=== PATIENT | female | born 1990 | race Caucasian/White ===

== ENCOUNTER 2019-06-06 16:30 | Outpatient (CLI) | payer BC ==
[~2019-06-06] VITALS: Ht 154.9 cm; Wt 98.2 kg
--- NOTE | 2019-06-06 16:40 | NUR ---
Patient ambulates with spouse to LR3, changed into gown and FHR/TOCO monitors placed and explained. Patient states she has been torsten since 1320 today and have become more regular and having some bloody discharge. Denies any leaking of fluid/vaginal bleeding/decreased movement. Plan of care discussed. SVE-/-3 Will continue to monitor
[2019-06-06] MEDS ORDERED: LEXAPRO 10MG10 MG PO (16:57)
[2019-06-06] MEDS ORDERED: PRENATAL TABLET PO (16:58)
[2019-06-06 17:30] VITALS: BP 132/76; PULSE 75; TEMP 98.4
[2019-06-06 18:00] VITALS: BP 136/84; PULSE 68
== END 2019-06-06 18:07 | disposition home or self-care (01) ==
LOC: LDRO 16:30 → LDR 17:06 → LDRO 18:07
DX: O62.9 Abnormality of forces of labor, unspecified (principal); O26.853 Spotting complicating pregnancy, third trimester; Z3A.40 40 weeks gestation of pregnancy
CPT/HCPCS: OP

== ENCOUNTER 2019-06-10 06:18 | Inpatient (IN) | payer BC ==
--- NOTE | 2019-06-09 19:23 | NUR ---
To C/S room via bed.
[2019-06-10] VITALS (63 sets, daily range): BP systolic 104–156; BP diastolic 57–91; PULSE 62–107; TEMP 98.1–98.8
[~2019-06-10] VITALS: Ht 157.5 cm; Wt 98.2 kg
[~2019-06-10 06:18] MED LIST: LEXAPRO 10MG10 MG PO; PRENATAL TABLET PO
--- NOTE | 2019-06-10 07:15 | NUR ---
Patient ambulatory to unit accompanied by spouse for scheduled pitocin induction of labor. Patient oriented to room and call light. Clean gown on and patient resting in bed. FHR and contraction monitors placed and explained. Patient denies any leaking of fluid or vaginal bleeding and states baby has been active. Consents signed. Assessment completed.
--- NOTE | 2019-06-10 08:00 | NUR ---
0750: IV started in left hand, labs collected from IV site and LR infusing without difficulty. 0755: SVE 2/50/-3. 0800: Pitocin started at 2mu/min. Patient resting in bed, sitting upright. Call light in reach and at bedside.
[2019-06-10 08:26] LABS: BASO # 0.1 (0.0-0.2); BASO % 0.5 % (0.0-2.0); EOS # 0.2 (0.0-0.7); EOS % 1.5 % (0-4.0); GRAN # 8.4 (1.4-6.5); GRAN % 76.7 % (42.2-75.2); HEMOGLOBIN 12.8 g/dl (12.5-16.0); LYMPH # 1.7 (1.2-3.4); LYMPH % 15.6 % (20.0-51.0); MEAN CELL VOLUME 85 fl (80.0-100.0); MEAN CORPUSCULAR HEMOGLOBIN 29 pg (27.0-31.0); MEAN CORPUSCULAR HGB CONC 34 g/dl (33.0-37.0); MEAN PLATELET VOLUME 11.8 fl (7.4-10.4); MONO # 0.6 (0.1-0.6); MONO % 5.4 % (1.7-9.3); PLATELET COUNT 203 K/mm3 (130-400); RED BLOOD COUNT 4.47 M/mm3 (4.10-5.30); REDCELL DISTRIBUTION WIDTH-CV 13.9 % (11.5-14.5)
--- NOTE | 2019-06-10 08:30 | NUR ---
0830: Dr. Adorno at nurses station and reviews FHR and contraction pattern since admit. To patient room. Plan of care discussed with patient and . SVE by Dr. Adorno with AROM attempt. No leaking of fluid noted. Patient state she feels like she needs to void. Patient off monitors and up to bathroom then back to be. 0855: Dr. Adorno attempt at AROM again but no leaking noted. Patient repositioned and sitting up in bed. Educated to call out if leaking fluid. SVE per Dr. Adorno 2-3//-2.
--- NOTE | 2019-06-10 11:00 | NUR ---
Patient breathing through contractions and states she is feeling contractions in her lower abdomen. Patient repositioned in bed, wedged right. Patient denies need for epidural at this time.
--- NOTE | 2019-06-10 11:45 | NUR ---
1145: Patient breathing heavily through contractions and tearful. Patient encouraged to slow breathing and breathing technique reviewed with patient. Patient requests an epidural at this time. SVE /-2. Margi Decker CRNA called about patient request for epidural.
--- NOTE | 2019-06-10 12:05 | NUR ---
1205: Patient off monitor and up to bathroom then back to bed, sitting upright at side of bed for epidural placement. Margi Decker CRNA in room and epidural procedure explained. 1215: Epidural catheter placed. 1214: Epidural test dose given and no reaction to test dose. Patient tolerates epidural placement well. 1220: Patient repositioned wedged right and resting in bed. See anesthesia records.
--- NOTE | 2019-06-10 13:05 | NUR ---
1305: Stark catheter placed using sterile technique. Patient tolerates well. Dr. Adorno on unit and reviews FHR and contractions. 1310: SVE by Dr. Adorno /-. No leaking of fluid with SVE. IUPC placed by Dr. Adorno and patient tolerates well. FHR after IUPC placement down to 105-110 bpm. Patient repositioned wedged left then to right lateral. SPO2 monitor placed and maternal heart rate tracing as well. 1320: Late FHR deceleration down to 90 bpm. Pitocin off. Patient repositioned to far left lateral. Oxygen on and LR bolus infusing. Dr. Adorno notified.
--- NOTE | 2019-06-10 14:30 | NUR ---
1430: Pitocin restarted at 2mu/min per Dr. Adorno order.
--- NOTE | 2019-06-10 16:15 | NUR ---
Dr. Adorno at nurses station and reviews FHR and contraction pattern. To patient room. SVE per Dr. Adorno .
--- NOTE | 2019-06-10 17:20 | NUR ---
Patient repositioned on far left side and peanut ball placed. Patient resting comfortably with epidural.
--- NOTE | 2019-06-10 18:50 | NUR ---
this nurse into room for assessment. FHT's 90-100's. Peanut ball removed, to supine, pt with epidural,unable to move legs, FHT's to 60's to R side, brief return to 100's, then back to 60's. RN x2 assist with turn. SVE as noted. O2 on, LR to bolus, Pitocin gtt off. 1903 Dr Adorno notified of FHT's, request to come to hospital. To Knee-chest with assist of RN's X3. 1914 To Supine for SVE by Dr Adorno.
[2019-06-11 05:15] VITALS: BP 124/66; PULSE 86; TEMP 98.9
[2019-06-11 07:16] VITALS: BP 124/64; PULSE 76; TEMP 98.1
[2019-06-11] MEDS ORDERED: PERCOCET 325 MG1 TA2 PO (09:32)
[2019-06-11] MEDS ORDERED: IBU600 MG PO (09:32)
--- NOTE | 2019-06-11 11:15 | NUR ---
Initial visit; Parents thanked Insurance Defense Attorney for offering congratulations and God's blessings for the of their daughter. Insurance Defense Attorney thanked family for choosing [facility].
[2019-06-11 16:07] VITALS: BP 124/68; PULSE 76; TEMP 98.2
[2019-06-11 21:00] VITALS: BP 122/64; PULSE 80; TEMP 98.8
[2019-06-11 23:15] VITALS: BP 111/64; PULSE 82; TEMP 98.8
[2019-06-12 08:40] VITALS: BP 131/77; PULSE 92; TEMP 97.2
[2019-06-12 16:30] VITALS: BP 116/68; PULSE 81; TEMP 97.9
[2019-06-12 21:05] VITALS: BP 118/68; PULSE 79; TEMP 98
[2019-06-13 08:00] VITALS: BP 123/79; PULSE 81; TEMP 98
--- NOTE | 2019-06-13 11:35 | NUR ---
Patient discharge instructions reviewed with her and . Patient was given script for Percocet yesterday. Appointments reviewed. Patient verbalizes understanding. Escorted out to vehicle with and infant.
== END 2019-06-13 11:50 | disposition home or self-care (01) | DRG 788 ==
LOC: LDR 06:18 → OB 21:00
PROVIDERS: ADMIT Obstetrics & Gynecology
PROC: 10D00Z1 Extraction of Products of Conception, Low, Open Approach (ICD-10-PCS; principal; 2019-06-10)
PROC: 4A1HXCZ Monitoring of Products of Conception, Cardiac Rate, External Approach (ICD-10-PCS; 2019-06-10)
DX: O76 Abnormality in fetal heart rate and rhythm complicating labor and delivery (principal); O99.344 Other mental disorders complicating childbirth; O77.0 Labor and delivery complicated by meconium in amniotic fluid; O48.0 Post-term pregnancy; F32.9 Major depressive disorder, single episode, unspecified; F41.9 Anxiety disorder, unspecified; Z3A.41 41 weeks gestation of pregnancy; Z37.0 Single live birth; Z86.14 Personal history of Methicillin resistant Staphylococcus aureus infection
CPT/HCPCS: J0690; J1885; J2370; J2405; J2590; J7120

== ENCOUNTER → 2019-06-16 | Outpatient (CLI) | payer BC ==
[~2019-06-16] MED LIST changes: +IBU600 MG PO; +PERCOCET 325 MG1 TA2 PO
--- NOTE | 2019-06-16 11:51 | NUR ---
Li Maysese into walk in clinic with 6 day old Asim for evaluation. Asim was born on 06/10/2018 with a weight of 7# 9 oz and a discharge weight of 6#14 oz on 01/12/20. Li states Asim nurses approx 8 times per day for 15 minutes per breast and has been having 5 wet and 5 soiled diapers a day. Li states she has been having sore nipples since delivery so has been substituting 2 feedings a day with 2 oz expressed breastmilk or formula. While in clinic, Li latched Asim to the right breast. Shallow latch noted. LC offered advise on obtaining a deeper latch. Li reported decrease pain after fixing latch. Asim nursed bilaterally for 10-15 min per breast with a total gain of 40 gms. Li states she pumps two times a day ang is getting 1-1 1/2 oz total between breasts. POC: LC discussed pumping after feeds to help increase supply, then feeding the EBM to Asim after feeds to try to increase his intake to 2 oz per feeding. Follow up in clinic or at physician office next week for weight check. Questions invited and answered. Understanding verbalized.
== END ==
LOC: LAC 10:53
DX: Z39.1 Encounter for care and examination of lactating mother (principal)